=== PATIENT | female | born 1995 | race African-American/Black ===

== ENCOUNTER 2017-07-04 14:39 | Emergency (ER) | payer SELFPAY ==
--- NOTE | 2017-07-04 15:43 | EDM.PDOC ---
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 She denies any vaginal bleeding any vomiting or diarrhea, she has had nausea. Patient denies any fevers or chills. Review of systems: As per history of present illness and below otherwise all systems reviewed and negative. Past medical history: As per history of present illness and as reviewed below otherwise noncontributory. Surgical history: As per history of present illness and as reviewed below otherwise noncontributory. Social history: No reported history of drug or alcohol abuse. Family history: As per history of present illness and as reviewed below otherwise noncontributory. Physical exam: General: Well developed, well nourished in NAD HEENT: Atraumatic, normocephalic, pupils reactive, negative for conjunctival pallor or scleral icterus, mucous membranes moist, throat clear, neck supple, nontender, trachea midline. Lungs: Clear to auscultation, breath sounds equal bilaterally, chest nontender. Heart: S1S2, regular, negative for clicks, rubs, or JVD. Abdomen: Soft, nondistended, nontender. Negative for masses or hepatosplenomegaly. Negative for costovertebral tenderness. Pelvis: Stable nontender. Genitourinary: Deferred. Rectal: Deferred. Extremities: Atraumatic, negative for cords or calf pain. Neurovascular unremarkable. Neuro: Awake, alert, oriented. Cranial nerves II through XII unremarkable. Cerebellum unremarkable. Motor and sensory unremarkable throughout. Exam nonfocal. Diagnostics: []Ultrasound showing a single viable IUP with heart tones at 119 estimated age of 6 weeks and 3 days Therapeutics: [] Impression: [] Plan: [] Definitive disposition and diagnosis as appropriate pending reevaluation and review of above. Lower Abdominal Pain Score (Numeric/FACES): 7 - Related Data Allergies Allergy/AdvReac Type Severity Reaction Status Date / Time No Known Allergies Allergy Verified 07/04/17 15:05 Home Meds: Home Meds . [No Known Home Meds] 07/04/17 [History] Past Medical History - Past Health History Medical/Surgical History: Denies Medical/Surgical History - Past Surgical History Female Surgical History: Reports: Section Social & Family History - Family History Family Medical History: Noncontributory - Tobacco Use Smoking Status *Q: Light Tobacco Smoker Years of Tobacco use: 10 Packs/Tins Daily: 1 - Caffeine Use Caffeine Use: Reports: None - Recreational Drug Use Recreational Drug Use: No ED ROS GENERAL - Review of Systems Review Of Systems: See Below (See history of present illness) ED EXAM, GI/ABD - Physical Exam Exam: See Below (See history of present illness) Course - Vital Signs Last Recorded V/S: Last Vital Signs Temp 97.3 F 07/04/17 15:00 Pulse 91 07/04/17 15:00 Resp 20 07/04/17 15:00 BP 129/79 07/04/17 15:00 Pulse Ox 99 07/04/17 15:00 - Orders/Labs/Meds Orders: Active Orders 24 hr Category Date Time Status OB Ltd 1 or More Fetus [US] Stat Exams 07/04/17 16:12 Taken Labs: Laboratory Tests 07/04/17 07/04/17 Range/Units 15:25 15:50 HCG, Quant 61944.2 mIU/mL Urine Color YELLOW Urine Appearance SLT CLOUDY Urine pH 6.0 (5.0-8.0) Ur Specific [place] >= 1.030 (1.001-1.035) Urine Protein NEGATIVE (NEGATIVE) mg/dL Urine Glucose (UA) NEGATIVE (NEGATIVE) mg/dL Urine Ketones TRACE H (NEGATIVE) mg/dL Urine Occult Blood NEGATIVE (NEGATIVE) Urine Nitrite NEGATIVE (NEGATIVE) Urine Bilirubin NEGATIVE (NEGATIVE) Urine Urobilinogen 0.2 (<2.0) EU/dL Ur Leukocyte Esterase NEGATIVE (NEGATIVE) Urine RBC 0-1 (0-2/HPF) Urine WBC 0-1 (0-5/HPF) Ur Epithelial Cells MODERATE (NONE-FEW) Urine Bacteria RARE (NEGATIVE) Urine Mucus HEAVY (NONE-MOD) Departure - Departure Time of Disposition: 16:54 Disposition: Home, Self-Care 01 Condition: Good Clinical Impression: Qualifiers: Weeks of gestation: less than 8 weeks Qualified Code(s): Z3A.01 - Less than 8 weeks gestation of - Discharge Information Referrals: PCP,None [Primary Care Provider] - Clark Muniz MD [Physician] - Forms: ED Department Discharge Additional Instructions: The following information is given to patients seen in the emergency department who are being discharged to home. This information is to outline your options for follow-up care. We provide all patients seen in our emergency department with a follow-up referral. The need for follow-up, as well as the timing and circumstances, are variable depending upon the specifics of your emergency department visit. If you don't have a primary care physician on staff, we will provide you with a referral. We always advise you to contact your personal physician following an emergency department visit to inform them of the circumstance of the visit and for follow-up with them and/or the need for any referrals to a consulting specialist. The emergency department will also refer you to a specialist when appropriate. This referral assures that you have the opportunity for follow-up care with a specialist. All of these measure are taken in an effort to provide you with optimal care, which includes your follow-up. Under all circumstances we always encourage you to contact your private physician who remains a resource for coordinating your care. When calling for follow-up care, please make the office aware that this follow-up is from your recent emergency room visit. If for any reason you are refused follow-up, please contact the [facility] Emergency Department at and asked to speak to the emergency department charge nurse. Follow-up with OB as directed - My Orders Last 24 Hours: My Active Orders 07/04/17 16:12 OB Ltd 1 or More Fetus [US] Stat - Assessment/Plan Last 24 Hours: My Active Orders 07/04/17 16:12 OB Ltd 1 or More Fetus [US] Stat
--- NOTE | 2017-07-05 09:29 | US ---
EXAM DATE: 07/04/17 PATIENT'S AGE: 22 Patient: FOUZIA CASTRO Facility: [place], [place] Site . Site : 1995 Study: US OB Pelvis [id number] 4:39:40 PM Ordering Physician: Jeff Zacarias Final Report: INDICATION: Lower pelvic pain. TECHNIQUE: Ultrasound pelvis transabdominal and transvaginal for better assessment or to better visualize the endometrium. Real-time sonographic images with spectral and color Doppler imaging of the ovaries were obtained. COMPARISON: None. FINDINGS: There is a single living intrauterine with crown-rump length of 6 mm corresponding to 6 weeks 3 days. heart rate is 119 beats per minute. A normal-appearing gestational sac and yolk sac. The uterus is otherwise unremarkable. Right ovary is 3.4 x 2.3 x 2.6 cm and is within normal limits. Left ovary is 2.9 x 1.6 x 2.6 cm and is within normal limits. Normal appearing color Doppler flow in the ovaries. No pelvic free fluid. IMPRESSION: Single living intrauterine with estimated age of 6 weeks 3 days. Dictated by Bry Wallace MD @ 07/04/2017 4:44:30 PM Dictated by: Bry Wallace MD @ 07/04/2017 16:44:52 (Electronic Signature) Report Signed by Proxy. KENY
== END 2017-07-04 16:59 | disposition home or self-care (01) ==
LOC: MW.ED 14:39
DX: O99.89 Other specified diseases and conditions complicating pregnancy, childbirth and the puerperium (principal); R10.30 Lower abdominal pain, unspecified; O99.331 Smoking (tobacco) complicating pregnancy, first trimester; F17.210 Nicotine dependence, cigarettes, uncomplicated; Z3A.01 Less than 8 weeks gestation of pregnancy
CPT/HCPCS: 36415; 76815; 76815-26; 81001; 84702; 99282; 99284-25

== ENCOUNTER 2018-02-15 18:45 | Emergency (ER) | payer SELFPAY ==
[~2018-02-15 18:45] MED LIST: Oxytocin 10 Units/1 ML SDV IM ONE; Sodium Chloride 0.9% 1,000 ML IV ONE
[2018-02-15] MEDS ORDERED: Sodium Chloride 0.9% 10 ML Syringe FLUSH PRN (18:52)
[2018-02-15] MEDS ORDERED: Sodium Chloride 0.9% 2.5 ML Syringe FLUSH PRN (18:52)
[2018-02-15] MEDS ORDERED: Sodium Chloride 0.9% 1,000 ML IV ONE (18:52)
[2018-02-15] MEDS ORDERED: Acetaminophen 500 MG Tab PO ONE (19:17)
[2018-02-15 19:19] LABS: CHLORIDE,CL 103 mmol/L (98-107); SODIUM,NA 136 mmol/L (136-145)
--- NOTE | 2018-02-15 19:48 | EDM.PDOC ---
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 Patient states she has been receiving care through a local registered nurse midwife (not associated with the hospital or any community clinic). Upon the vaginal delivery at was noted that the infant's or was low and they did have to do CPR. EMS was called to scene for the care of the . Due to the unknown circumstances around the vaginal delivery and care they did request that the patient come in for evaluation. Upon arrival her vital signs are stable. She states that she "just wants to make sure my baby is okay... I want something for the pain". The OB team (Petr ORDONEZ and additional staff) are here to evaluate the patient and assist in care. P:0, living 2 year old LMP: 2017 Care: Elina Chinchilla, Nurse Cold Storage Superintendent Review of systems: As per history of present illness and below otherwise all systems reviewed and negative. Past medical history: As per history of present illness and as reviewed below otherwise noncontributory. Surgical history: As per history of present illness and as reviewed below otherwise noncontributory. Social history: No reported history of drug or alcohol abuse. Family history: As per history of present illness and as reviewed below otherwise noncontributory. Physical exam: General: HEENT: Atraumatic, normocephalic, pupils equal and reactive bilaterally, negative for conjunctival pallor or scleral icterus, mucous membranes moist, throat clear, neck supple, nontender, trachea midline. No drooling or trismus noted. No meningeal signs Lungs: Clear to auscultation, breath sounds equal bilaterally, chest nontender. Heart: S1S2, regular rate and rhythm without overt murmur Abdomen: Soft, nondistended, nontender. Negative for masses or hepatosplenomegaly. Negative for costovertebral tenderness. Pelvis: Stable nontender. Firm Uterus (about a hand bredth above the mons Genitourinary: Refused Rectal: Refused Skin: Intact, warm, dry. No lesions or rashes noted. Extremities: Atraumatic, moves all per self, negative for cords or calf pain. Neurovascular unremarkable. Neuro: Awake, alert, oriented. Cranial nerves II through XII unremarkable. Cerebellum unremarkable. Motor and sensory unremarkable throughout. Exam nonfocal. Notes: Initially the OB team was able to assess this patient and palpate the fundus and perform fundal massage. Dr Macias was paged. Dr Ivan was involved in this patient's care and had ordered Pitossin 10mg IM for nursing staff to give. Communicating with Dr Ivan, I did go in and talk with patient about performing lab work and doing a further OB and gynecological exam. The patient refused. She states that she was the impression she came to the emergency room to make sure that her baby is okay. She states that she does not want to be evaluated and just "want something for pain". I explained to the patient that she needs to have routine lab work to make sure that she is well enough to be discharged home, as she is adamant about leaving. She declines all diagnostics. She states she does not want any lab work, OB gynecological exam/evaluation, blood products (if needed) or further evaluation. Discussed the risks of not being evaluated which could be severe vaginal bleeding, sepsis, and even . Patient is aware of these risks and still would like to be discharged to home. This was explained by Dr Ivan, myself, ER and OB staff. Spoke with Dr Macias about this patient, my evaluation of her, and the labs that I had available to me - in case the patient returns for evaluation. She is aware of this patient. Patient's vital signs before leaving AGAINST MEDICAL ADVICE are within normal limits. The nurse registered nurse midwife who assisted in her care/delivery is with the patient and will be driving her home. Diagnostics: CBC, CMP, AB/RH, Type and Screen, UA (Declines all labs) Therapeutics: Tylenol PO Prescription: None Impression: Against Medical Advice Plan: Patient left against medical advice Definitive disposition and diagnosis as appropriate pending reevaluation and review of above. - Related Data Allergies Allergy/AdvReac Type Severity Reaction Status Date / Time No Known Allergies Allergy Verified 09/17/17 13:45 Home Meds: Home Meds Vit W-Ca,Fe,FA(<1 mg) [ Vitamins] 1 tab PO DAILY 09/17/17 [ History] Past Medical History - Past Health History Medical/Surgical History: Denies Medical/Surgical History - Past Surgical History Female Surgical History: Reports: Section Social & Family History - Family History Family Medical History: Noncontributory - Caffeine Use Caffeine Use: Reports: None ED ROS GENERAL - Review of Systems Review Of Systems: ROS reveals no pertinent complaints other than HPI. ED EXAM - Physical Exam Exam: See Below (See dictation) Course - Vital Signs Last Recorded V/S: Last Vital Signs Temp 97.7 F 02/15/18 19:25 Pulse 67 02/15/18 19:25 Resp 20 02/15/18 19:25 BP 132/71 02/15/18 19:25 Pulse Ox 100 02/15/18 19:25 - Orders/Labs/Meds Orders: Active Orders 24 hr Category Date Time Status Sodium Chloride 0.9% [Saline Flush] Med 02/15/18 18:52 Active 10 ml FLUSH ASDIRECTED PRN Sodium Chloride 0.9% [Saline Flush] Med 02/15/18 18:52 Active 2.5 ml FLUSH ASDIRECTED PRN Saline Lock Insert [OM.PC] Stat Oth 02/15/18 18:52 Ordered Medication Orders Sodium Chloride (Saline Flush) 10 ml FLUSH ASDIRECTED PRN PRN Reason: Keep Vein Open Sodium Chloride (Saline Flush) 2.5 ml FLUSH ASDIRECTED PRN PRN Reason: Keep Vein Open Labs: Laboratory Tests 02/15/18 02/15/18 02/15/18 Range/Units 18:52 18:52 18:52 WBC 10.12 (4.0-11.0) K/uL RBC 4.22 L (4.30-5.90) M/uL Hgb 12.5 (12.0-16.0) g/dL Hct 35.4 L (36.0-46.0) % MCV 83.9 (80.0-98.0) fL MCH 29.6 (27.0-32.0) pg MCHC 35.3 (31.0-37.0) g/dL RDW Std Deviation 40.4 (28.0-62.0) fl RDW Coeff of Wiley 13 (11.0-15.0) % Plt Count 188 (150-400) K/uL MPV 10.20 (7.40-12.00) fL Neut % (Auto) 83.8 H (48.0-80.0) % Lymph % (Auto) 12.0 L (16.0-40.0) % Pratt % (Auto) 4.0 (0.0-15.0) % Eos % (Auto) 0.1 (0.0-7.0) % Baso % (Auto) 0.1 (0.0-1.5) % Neut # (Auto) 8.5 H (1.4-5.7) K/uL Lymph # (Auto) 1.2 (0.6-2.4) K/uL Pratt # (Auto) 0.4 (0.0-0.8) K/uL Eos # (Auto) 0.0 (0.0-0.7) K/uL Baso # (Auto) 0.0 (0.0-0.1) K/uL Nucleated RBC % 0.0 /100WBC Nucleated RBCs # 0 K/uL Sodium 136 (136-145) mmol/L Potassium 3.9 (3.5-5.1) mmol/L Chloride 103 (98-107) mmol/L Carbon Dioxide 21.4 (21.0-32.0) mmol/L BUN 9 (7.0-18.0) mg/dL Creatinine 0.9 (0.6-1.0) mg/dL Est Cr Clr Drug Dosing TNP Estimated GFR (MDRD) > 60.0 ml/min Glucose 126 H (74-106) mg/dL Calcium 9.4 (8.5-10.1) mg/dL Total Bilirubin 0.2 (0.2-1.0) mg/dL AST 18 (15-37) IU/L ALT 18 (14-63) IU/L Alkaline Phosphatase 162 H (46-116) U/L Total Protein 7.1 (6.4-8.2) g/dL Albumin 3.1 L (3.4-5.0) g/dL Globulin 4.0 H (2.0-3.5) g/dL Albumin/Globulin Ratio 0.8 L (1.3-2.8) Blood Type O POSITIVE Antibody Screen NEGATIVE Meds: Medications Generic Name Dose Route Start Last Admin Trade Name Mike PRN Reason Stop Dose Admin Sodium Chloride 10 ml 02/15/18 18:52 Saline Flush FLUSH ASDIRECTED PRN Keep Vein Open Sodium Chloride 2.5 ml 02/15/18 18:52 Saline Flush FLUSH ASDIRECTED PRN Keep Vein Open Discontinued Medications Generic Name Dose Route Start Last Admin Trade Name Mike PRN Reason Stop Dose Admin Acetaminophen 1,000 mg 02/15/18 19:17 02/15/18 19:21 Tylenol Extra Strength PO 02/15/18 19:18 1,000 mg ONETIME ONE Administration Sodium Chloride 1,000 mls @ 999 mls/hr 02/15/18 18:52 Normal Saline IV 02/15/18 19:52 STAT ONE Departure - Departure Time of Disposition: 20:00 Disposition: Against Medical Advice 07 Clinical Impression: Vaginal delivery - Discharge Information Referrals: PCP,None [Primary Care Provider] - Forms: ED Department Discharge - My Orders Last 24 Hours: My Active Orders 02/15/18 18:52 Sodium Chloride 0.9% [Saline Flush] 10 ml FLUSH ASDIRECTED PRN Sodium Chloride 0.9% [Saline Flush] 2.5 ml FLUSH ASDIRECTED PRN Saline Lock Insert [OM.PC] Stat - Assessment/Plan Last 24 Hours: My Active Orders 02/15/18 18:52 Sodium Chloride 0.9% [Saline Flush] 10 ml FLUSH ASDIRECTED PRN Sodium Chloride 0.9% [Saline Flush] 2.5 ml FLUSH ASDIRECTED PRN Saline Lock Insert [OM.PC] Stat
== END 2018-02-15 20:00 | disposition left against medical advice (07) ==
LOC: MW.ED 18:45
DX: O90.89 Other complications of the puerperium, not elsewhere classified (principal); N94.89 Other specified conditions associated with female genital organs and menstrual cycle; Z37.1 Single stillbirth
CPT/HCPCS: 36415; 80053; 85025; 86850; 86900; 86901; 99285; A9270; J2590; J7040

== ENCOUNTER 2019-10-14 14:27 | Emergency (ER) | payer SELFPAY ==
--- NOTE | 2019-10-14 15:20 | EDM.PDOC ---
ED HPI GENERAL MEDICAL PROBLEM - General Chief Complaint: General Stated Complaint: TEST Time Seen by Provider: 10/14/19 15:04 Source of Information: Reports: Patient History Limitations: Reports: No Limitations - History of Present Illness INITIAL COMMENTS - FREE TEXT/NARRATIVE: Presents reporting she wants a test. Patient states that she took 2 tests at home and they were both negative but she does not believe that. Last menstrual period 8 days ago. She states that during her last two pregnancies she had periods for 3 months before they stopped. Now she has back pain, feels bloated, has cravings and is nauseated every day. No vaginal bleeding or symptoms, no dysuria, no abdominal pain or pelvic pain. She was trying to get . 2 para 1 with 1 infant . - Related Data Allergies Allergy/AdvReac Type Severity Reaction Status Date / Time No Known Allergies Allergy Verified 10/14/19 14:44 Home Meds: Home Meds . 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 ED EXAM, GENERAL - Physical Exam Exam: See Below Exam Limited By: No Limitations General Appearance: Alert, No Apparent Distress Ears: Normal External Exam Nose: Normal Inspection Throat/Mouth: Normal Inspection Head: Atraumatic, Normocephalic Neck: Normal Inspection Respiratory/Chest: No Respiratory Distress, Lungs Clear, Normal Breath Sounds Cardiovascular: Normal Peripheral Pulses, Regular Rate, Rhythm GI/Abdominal: Normal Bowel Sounds Back Exam: Normal Inspection Extremities: Normal Inspection Neurological: Alert, Oriented Psychiatric: Normal Affect, Normal Mood Skin Exam: Warm, Dry, Intact, Normal Color Lymphatic: No Adenopathy Course - Vital Signs Last Recorded V/S: Last Vital Signs Temp 35.7 C L 10/14/19 14:40 Pulse 105 H 10/14/19 14:40 Resp 16 10/14/19 14:40 BP 132/85 10/14/19 14:40 Pulse Ox 97 10/14/19 14:40 - Orders/Labs/Meds Labs: Laboratory Tests 10/14/19 Range/Units 15:28 HCG, Quant < 1.0 mIU/mL Departure - Departure Time of Disposition: 16:22 Disposition: Home, Self-Care 01 Clinical Impression: Encounter for medical screening examination - Discharge Information Referrals: PCP,None [Primary Care Provider] - Forms: ED Department Discharge Sepsis Event Note - Evaluation Sepsis Screening Result: No Definite Risk - Focused Exam Vital Signs: Vital Signs Temp Pulse Resp BP Pulse Ox 10/14/19 14:40 35.7 C L 105 H 16 132/85 97 Date Exam was Performed: 10/14/19 Time Exam was Performed: 16:22
== END 2019-10-14 16:30 | disposition home or self-care (01) ==
LOC: MW.ED 14:27
DX: Z32.00 Encounter for pregnancy test, result unknown (principal); F17.210 Nicotine dependence, cigarettes, uncomplicated
CPT/HCPCS: 36415; 84702; 99282

== ENCOUNTER 2020-04-27 18:57 | Emergency (ER) | payer SELFPAY ==
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
[2020-04-27 20:25] LABS: BLOOD UREA NITROGEN,BUN 12 mg/dL (7.0-18.0); CARBON DIOXIDE,CO2 24.7 mmol/L (21.0-32.0); CHLORIDE,CL 104 mmol/L (98-107); GLUCOSE RANDOM 92 mg/dL (74-106); POTASSIUM,K 4.1 mmol/L (3.5-5.1); SODIUM,NA 142 mmol/L (136-145)
== END 2020-04-27 20:38 ==
LOC: MW.ED 18:57
DX: Z04.1 Encounter for examination and observation following transport accident (principal)
CPT/HCPCS: 36415; 80053; 80307; 84702; 85025; 99284

== ENCOUNTER 2020-09-07 07:13 | Emergency (ER) | payer SELFPAY ==
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
== END 2020-09-07 08:17 | disposition home or self-care (01) ==
LOC: MW.ED 07:13
DX: S00.461A Insect bite (nonvenomous) of right ear, initial encounter (principal); S00.462A Insect bite (nonvenomous) of left ear, initial encounter; W57.XXXA Bitten or stung by nonvenomous insect and other nonvenomous arthropods, initial encounter
CPT/HCPCS: 99282

== ENCOUNTER 2021-11-28 08:01 | Emergency (ER) | payer SELFPAY ==
[2021-11-28] MEDS ORDERED: traMADol 50 MG Tab PO ONE (08:33)
[2021-11-28] MEDS ORDERED: Ketorolac 30 MG/ML SDV IM ONE (08:33)
[2021-11-28] MEDS ORDERED: predniSONE 20 MG Tab PO STA (08:33)
[2021-11-28 09:11] LABS: CARBON DIOXIDE,CO2 27.2 mmol/L (21.0-32.0)
[2021-11-28 09:27] LABS: POTASSIUM,K 2.3 mmol/L (3.5-5.1)
[2021-11-28] MEDS ORDERED: Magnesium Sulfate/Water 2 GM in Premix Bag 1 BAG IV ONE (09:38)
[2021-11-28] MEDS ORDERED: Potassium Chloride 10% 20 MEQ/15 ML Soln 30 ML UD Cup PO ONE (09:40)
[2021-11-28] MEDS ORDERED: D5%-0.9% NaCl w/ KCl 40 meq 1,000 ML IV SCH (09:45)
== END 2021-11-28 09:50 | disposition left against medical advice (07) ==
LOC: MW.ED 08:01
DX: G89.29 Other chronic pain (principal); E87.6 Hypokalemia; E83.42 Hypomagnesemia
CPT/HCPCS: 36415; 80053; 83735; 84703; 85025; 96372; 99283; A9270; J1885

== ENCOUNTER 2021-11-28 11:09 | Emergency (ER) | payer SELFPAY ==
[2021-11-28] MEDS ORDERED: Magnesium Sulfate/Water 2 GM in Premix Bag 1 BAG IV ONE (11:22)
[2021-11-28] MEDS ORDERED: Potassium Chloride 10% 20 MEQ/15 ML Soln 30 ML UD Cup PO ONE (11:24)
[2021-11-28] MEDS ORDERED: D5%-0.9% NaCl w/ KCl 40 meq 1,000 ML IV SCH ×2 (11:24→12:00)
[2021-11-28] MEDS ORDERED: Ondansetron 4 MG/2 ML SDV IVPUSH ONE (11:24)
[2021-11-28] MEDS ORDERED: methylPREDNISolone Sodium Succinate 125 MG/2 ML SDV IVPUSH ONE (15:49)
== END 2021-11-28 16:10 | disposition home or self-care (01) ==
LOC: MW.ED 11:09
DX: G89.29 Other chronic pain (principal); D64.9 Anemia, unspecified; E87.6 Hypokalemia; E83.42 Hypomagnesemia; F17.210 Nicotine dependence, cigarettes, uncomplicated
CPT/HCPCS: 93005; 96365; 96366; 96367; 96375; 99283; A9270; J2405; J3475; J3480; 93010; 99284

== ENCOUNTER 2021-12-01 21:12 | Emergency (ER) | payer SELFPAY | END 2021-12-01 22:51 | disposition left against medical advice (07) | LOC: MW.ED 21:12 | DX: Z53.21 Procedure and treatment not carried out due to patient leaving prior to being seen by health care provider (principal) ==

== ENCOUNTER 2021-12-02 19:10 | Emergency (ER) | payer SELFPAY ==
[2021-12-02] MEDS ORDERED: Sodium Chloride 0.9% 2.5 ML Syringe FLUSH PRN (19:23)
[2021-12-02] MEDS ORDERED: Sodium Chloride 0.9% 10 ML Syringe FLUSH PRN (19:23)
[2021-12-02] MEDS ORDERED: Ketorolac 30 MG/ML SDV IVPUSH ONE (21:46)
[2021-12-02] MEDS ORDERED: methylPREDNISolone Sodium Succinate 125 MG/2 ML SDV IVPUSH ONE (21:46)
[2021-12-02] MEDS ORDERED: fentaNYL 50 MCG/ML SDV IVPUSH ONE (21:47)
[2021-12-02 22:00] LABS: CARBON DIOXIDE,CO2 25.2 mmol/L (21.0-32.0); POTASSIUM,K 3.2 mmol/L (3.5-5.1)
[2021-12-02] MEDS ORDERED: Furosemide 40 MG/4 ML VIAL IVPUSH STA (22:20)
[2021-12-02] MEDS ORDERED: Potassium Chloride 10% 20 MEQ/15 ML Soln 30 ML UD Cup PO ONE (22:21)
== END 2021-12-02 23:34 | disposition home or self-care (01) ==
LOC: MW.ED 19:10
DX: R60.0 Localized edema (principal); E87.5 Hyperkalemia; R21 Rash and other nonspecific skin eruption; M25.50 Pain in unspecified joint; Z79.899 Other long term (current) drug therapy
CPT/HCPCS: 36415; 80053; 85025; 96374; 96375; 99283; A9270; J1885; J1940; J2930; J3010; J3490; 99284

== ENCOUNTER 2021-12-08 23:54 | Emergency (ER) | payer SELFPAY | END 2021-12-09 00:38 | disposition left against medical advice (07) | LOC: MW.ED 23:54 | DX: Z53.21 Procedure and treatment not carried out due to patient leaving prior to being seen by health care provider (principal) ==

== ENCOUNTER 2021-12-10 16:01 | Emergency (ER) | payer SELFPAY | END 2021-12-10 17:18 | disposition left against medical advice (07) | LOC: MW.ED 16:01 | DX: M79.671 Pain in right foot (principal); M79.672 Pain in left foot; F17.210 Nicotine dependence, cigarettes, uncomplicated; Z79.899 Other long term (current) drug therapy | CPT/HCPCS: 99282; 99283 ==

== ENCOUNTER 2021-12-16 12:37 | Emergency (ER) | payer SELFPAY ==
[2021-12-16] MEDS ORDERED: MAGNESIUM SULFATE ONE (13:00)
[2021-12-16] MEDS ORDERED: Naloxone 0.4 MG/ML SDV IVPUSH ONE (13:19)
[2021-12-16] MEDS ORDERED: 50% Dextrose in Water 50 ML Syringe IVPUSH ONE ×2 (13:20→13:22)
[2021-12-16] MEDS ORDERED: EPINEPHrine 1:10,000 1 MG/10 ML Syringe IVPUSH ONE ×2 (13:21→13:26)
[2021-12-16] MEDS ORDERED: Magnesium Sulfate/Water 2 GM in Premix Bag 1 BAG IV ONE (13:21)
[2021-12-16] MEDS ORDERED: Atropine 0.1 MG/ML 10 ML Syringe IVPUSH ONE ×2 (13:21→13:23)
[2021-12-16] MEDS ORDERED: Sodium Bicarbonate 8.4% 50 MEQ/50 ML Syringe IVPUSH ONE (13:22)
[2021-12-16] MEDS ORDERED: Calcium Chloride 10% 1 GM/10 ML Syringe IVPUSH ONE ×2 (13:22→13:23)
[2021-12-16] MEDS ORDERED: Sodium Chloride 0.9% 1,000 ML IV ONE ×2 (13:23)
[2021-12-16] MEDS ORDERED: Sodium Chloride 0.9% 2.5 ML Syringe FLUSH PRN (13:24)
[2021-12-16] MEDS ORDERED: Sodium Chloride 0.9% 10 ML Syringe FLUSH PRN (13:24)
== END 2021-12-17 13:30 | disposition expired ==
LOC: MW.ED 12:37
DX: I46.9 Cardiac arrest, cause unspecified (principal); Z79.899 Other long term (current) drug therapy
CPT/HCPCS: 31500; 36556; 92950; 96361; 96374; 96375; 99285; J0171; J0461; J3475; J3490; J7030; 99291